=== PATIENT | male | born 1985 | race Hispanic/Latino ===

== ENCOUNTER 2017-02-05 17:34 | Emergency (ER) | payer OTHER ==
[~2017-02-05] VITALS: Ht 165.1 cm; Wt 62.0 kg
[~2017-02-05 17:34] MED LIST: AMOXICILLIN500 MG OR; ANAPROX275 MG OR; CEPHALEXIN500 M1 PO; NAPROSYN500 MG PO; NO HOME MEDS; PENICILLN VK500 M1 OR; PENICILLN VK500 MG OR; PERIDEX0.12 % MT; ROBITUSSIN AC10 ML OR; TESSALON PER100 MG PO; ULTRAM50 M1 OR; ULTRAM50 M1 PO; no home meds
[2017-02-05] MEDS ORDERED: AMOXICILLIN500 MG PO (18:06)
[2017-02-05] MEDS ORDERED: LORTAB 5/3255 MG PO (18:06)
[2017-02-05 18:10] VITALS: BP 122/61
== END 2017-02-05 18:10 | disposition home or self-care (01) | DRG 159 ==
LOC: ED 17:34
DX: K04.7 Periapical abscess without sinus (principal); F17.210 Nicotine dependence, cigarettes, uncomplicated

== ENCOUNTER 2018-06-20 06:35 | Emergency (ER) | payer SELFPAY ==
[~2018-06-20] VITALS: Ht 165.1 cm; Wt 55.0 kg
[~2018-06-20 06:35] MED LIST changes: +AMOXICILLIN500 MG PO; +LORTAB 5/3255 MG PO
[2018-06-20] MEDS ORDERED: AMOXICILLIN500 MG PO (06:55)
[2018-06-20] MEDS ORDERED: MOTRIN800 MG PO (06:55)
[2018-06-20] MEDS ORDERED: TRAMADOL HCL50 MG PO (06:55)
[2018-06-20 07:14] VITALS: BP 123/74
[2018-06-21] MEDS ORDERED: PENICILLN VK500 M1 PO (09:37)
== END 2018-06-20 07:14 | disposition home or self-care (01) | DRG 159 ==
LOC: ED 06:35
DX: K04.7 Periapical abscess without sinus (principal); K02.9 Dental caries, unspecified; F17.200 Nicotine dependence, unspecified, uncomplicated

== ENCOUNTER 2018-06-21 09:02 | Emergency (ER) | payer SELFPAY ==
[~2018-06-21] VITALS: Ht 165.1 cm; Wt 60.8 kg
[~2018-06-21 09:02] MED LIST changes: +MOTRIN800 MG PO; +TRAMADOL HCL50 MG PO
[2018-06-21] MEDS ORDERED: PENICILLN VK500 M1 PO (09:37)
[2018-06-21 09:38] VITALS: BP 137/78
== END 2018-06-21 09:42 | disposition home or self-care (01) | DRG 159 ==
LOC: ED 09:02
DX: K08.89 Other specified disorders of teeth and supporting structures (principal); F17.200 Nicotine dependence, unspecified, uncomplicated

== ENCOUNTER 2018-10-07 09:42 | Emergency (ER) | payer SELFPAY ==
[~2018-10-07] VITALS: Ht 165.1 cm; Wt 80.0 kg
[~2018-10-07 09:42] MED LIST changes: +PENICILLN VK500 M1 PO
[2018-10-07] MEDS ORDERED: MEDDOSEPAK PO (10:39)
[2018-10-07] MEDS ORDERED: TORADOL PO (10:39)
[2018-10-07 11:01] VITALS: BP 105/68
== END 2018-10-07 11:05 | disposition home or self-care (01) | DRG 563 ==
LOC: ED 09:42
DX: S66.912A Strain of unspecified muscle, fascia and tendon at wrist and hand level, left hand, initial encounter (principal); F17.210 Nicotine dependence, cigarettes, uncomplicated; X58.XXXA Exposure to other specified factors, initial encounter

== ENCOUNTER 2018-12-25 10:40 | Emergency (ER) | payer SELFPAY ==
[~2018-12-25] VITALS: Ht 165.1 cm; Wt 55.0 kg
[~2018-12-25 10:40] MED LIST changes: +MEDDOSEPAK PO; +TORADOL PO
[2018-12-25] MEDS ORDERED: VOLTAREN - GENE75 MG PO (11:52)
[2018-12-25 12:01] VITALS: BP 122/69
== END 2018-12-25 12:01 | disposition home or self-care (01) | DRG 313 ==
LOC: ED 10:40
DX: R07.89 Other chest pain (principal); F17.210 Nicotine dependence, cigarettes, uncomplicated; Z53.29 Procedure and treatment not carried out because of patient's decision for other reasons

== ENCOUNTER 2024-07-24 10:18 | Emergency (ER) | payer OTHER ==
[~2024-07-24] VITALS: Ht 165.1 cm; Wt 54.4 kg
[~2024-07-24 10:18] MED LIST changes: +BENZONATATE200 MG PO; +LEVOFLOXACIN750 MG PO; +VOLTAREN - GENE75 MG PO
[2024-07-24 10:22] VITALS: BP 132/90
[2024-07-24] MEDS ORDERED: Diph, Acellular Pertussis, Tet 0.5 ML/VIAL (Tdap) SDV IM ONE (11:30)
[2024-07-24 13:42] VITALS: BP 132/90
[2024-07-25] MEDS ORDERED: MIRALAX17 GM PO (18:31)
[2024-07-25] MEDS ORDERED: NAPROXEN500 MG PO (18:31)
[2024-07-25] MEDS ORDERED: METHOCARBAMOL500 MG PO (18:31)
== END 2024-07-24 13:44 | disposition left against medical advice (07) | DRG 313 ==
LOC: ED 10:18
DX: R07.89 Other chest pain (principal); S00.81XA Abrasion of other part of head, initial encounter; V43.52XA Car driver injured in collision with other type car in traffic accident, initial encounter; F17.200 Nicotine dependence, unspecified, uncomplicated; Z53.29 Procedure and treatment not carried out because of patient's decision for other reasons
CPT/HCPCS: 90715

== ENCOUNTER 2024-07-25 15:05 | Emergency (ER) | payer OTHER ==
[~2024-07-25] VITALS: Ht 165.1 cm; Wt 65.0 kg
[2024-07-25 15:14] VITALS: BP 133/89
[2024-07-25] MEDS ORDERED: ISOVUE-300 (Iopamidol) 100 ML SDV IV ONE ×2 (15:20)
[2024-07-25 15:32] LABS: BASO% 0.1 % (0-3); EOS% 2.3 % (0-8); HEMATOCRIT 48.7 % (39.0-50.0); HEMOGLOBIN 15.8 g/dl (14.0-18.0); IMMATURE GRANULOCYTES 0.2 % (0.0-5.0); LYMPH% 24.7 % (15-41); MEAN CELL VOLUME 88.2 fL CALC (80.0-100.0); MEAN CORPUSCULAR HGB 28.6 pG CALC (26.0-32.0); MEAN CORPUSCULAR HGB CONC 32.4 g/dL CAL (32.0-36.0); MONO% 6.7 % (2-13); NEUT# 8.86 thou/uL (1.82-7.42); RED BLOOD COUNT 5.52 mill/uL (4.70-6.10); RED CELL DISTRI WIDTH 13.8 % (11.5-15.5)
[2024-07-25 15:49] LABS: ALBUMIN 4.6 g/dL (3.2-5.0); ALKALINE PHOSPHATASE 66 u/l (38-126); BILIRUBIN, TOTAL 0.5 mg/dL (0.2-1.3); BUN 17 mg/dL (9-20); BUN/CREATININE RATIO 23 (12-20 (CALC)); CARBON DIOXIDE 29 mmol/l (22-30); CHLORIDE 102 mmol/l (95-108); CREATININE 0.8 mg/dL (0.7-1.3); ESTIMATED GFR 116 ML/MIN (>=90 (CALC)); SGOT/AST 42 u/l (17-59); SODIUM 141 mmol/l (137-146); TOTAL PROTEIN 7.7 g/dL (6.3-8.2)
[2024-07-25 15:50] LABS: ANION GAP 15 (6-22 (CALC)); POTASSIUM 4.6 mmol/l (3.5-5.1)
[2024-07-25 18:00] VITALS: BP 115/83
[2024-07-25 18:10] LABS: URINE BLOOD DIPSTICK Negative (NEGATIVE); URINE GLUCOSE - DIPSTICK 100 mg/dL (NEGATIVE); URINE KETONE Trace mg/dL (NEGATIVE); URINE LEUK ESTERASE Negative (NEGATIVE); URINE NITRITE - DIPSTICK Negative (Negative); URINE PROTEIN - DIPSTICK 30 mg/dL (NEG-TRACE)
[2024-07-25 18:12] LABS: URINE COLOR Yellow; URINE EPITHELIAL CELLS FEW EPI/hpf (0-FEW)
[2024-07-25 18:13] LABS: URINE MUCUS MODERATE hpf (NONE-FEW)
[2024-07-25 18:31] VITALS: BP 109/80
[2024-07-25] MEDS ORDERED: METHOCARBAMOL500 MG PO (18:31)
[2024-07-25] MEDS ORDERED: NAPROXEN500 MG PO (18:31)
[2024-07-25] MEDS ORDERED: MIRALAX17 GM PO (18:31)
[2024-07-25 18:40] VITALS: BP 109/80
== END 2024-07-25 18:52 | disposition home or self-care (01) | DRG 313 ==
LOC: ED 15:05
PROVIDERS: Nurse Practitioner
DX: R07.89 Other chest pain (principal); K59.00 Constipation, unspecified; F17.200 Nicotine dependence, unspecified, uncomplicated; V49.40XA Driver injured in collision with unspecified motor vehicles in traffic accident, initial encounter; Z20.822 Contact with and (suspected) exposure to COVID-19
CPT/HCPCS: Q9967